=== PATIENT | male | born 1975 | race Caucasian/White ===

== ENCOUNTER 2019-09-15 01:57 | Emergency (ER) | payer SELFPAY ==
[~2019-09-15] VITALS: Ht 193 cm; Wt 104.5 kg
[~2019-09-15 01:57] MED LIST: CYCL10TA9 PO; IBUP-1780 PO; PRD20T PO; PRM25T PO; TRM50T PO
--- OUTSIDE RECORDS SUMMARY | 2019-09-15 02:03 | XMS REPORT ---
Author Author Tera RENEE Organization [facility] Address [address] [place] [address] Care Team Providers Care Cycle Manager Name Role Phone MARIO RENEE Unavailable PROBLEMS Type Condition ICD9-CM Code PVM95-SM Code Onset Dates Condition S tatus SNOMED Code Problem Other chronic pain G89.29 Active 8 [id number] Problem Low back pain M54.5 Active 965308 009 Problem Sciatica of right side M54.31 Active [id number] ALLERGIES No Known Allergies ENCOUNTERS Encounter Location Date Diagnosis [facility] [id number] [place] [id number] Mar, Tonsillitis J03.90 [facility] [id number] [place] [id number] Oct, Other chronic pain G89.29 ; Low back pain M54.5 and Sciatica of right side M54.31 [facility] [address] [facility] [id number] [place] [id number] Jun, Hip pain, right M25.551 [facility] [id number] [place] [id number] Feb, IMMUNIZATIONS No Known Immunizations SOCIAL HISTORY Never Assessed REASON FOR VISIT Sore throat, headache, fatigue--Lou Dominguez MA PLAN OF CARE Activity Details Follow Up prn Reason: VITAL SIGNS Height 77 in 2017-03-30 Weight 222.6 lbs 2017-03-30 Temperature 99.1 degrees Fahrenheit 2017-03-30 Heart Rate 92 bpm 2017-03-30 Respiratory Rate 20 2017-03-30 BMI 26.39 kg/m2 2017-03-30 Blood pressure systolic 130 mmHg 2017-03-30 Blood pressure diastolic 72 mmHg 2017-03-30 MEDICATIONS Medication Instructions Dosage Frequency Start Date End Date Duration S tatus Amoxicillin 500 mg Orally every 12 hrs 2 capsules 12h Mar, Mar, 07 days Active RESULTS No Results PROCEDURES No Known procedures INSTRUCTIONS MEDICATIONS ADMINISTERED No Known Medications MEDICAL (GENERAL) HISTORY Type Description Date Surgical History orthopedic surgery- left ankle
--- OUTSIDE RECORDS SUMMARY | 2019-09-15 02:03 | XMS REPORT | Continuity of Care Document ---
Author Organization Unknown Address Unknown Phone Unavailable Allergies Active Description Code Type Severity Reaction Onset Reported/Identified Relationship to Patient Clinical Status Yes No Known Drug Allergies [id number] Drug Allergy Unknown N/A 03/30/2012 Medications There is no data. Problems Date Dx Coded Attending Type Code Diagnosis Diagnosed By 03/30/2012 Ot 787.03 03/30/2012 Ot 787.91 03/30/2012 Ot 789.00 06/14/2015 TAMEKA BEDOYA Ot F17.210 06/14/2015 TAMEKA BEDOYA Ot M51.16 Procedures There is no data. Results There is no data. Encounters ACCT No. Visit Date/Time Discharge Status Pt. Type Provider Facility Loc./Unit Complaint [id number] 03/30/2017 14:40:00 03/30/2017 23:59: 59 CLS Outpatient LOLY AGUILERA [facility] [id number] 06/14/2015 20:56:00 016 22:02:00 DIS Emergency TAMEKA BEDOYA [facility] ER [id number] 03/30/2012 08:59:00 Document Registration
[2019-09-15] MEDS ORDERED: LACTATED RINGERS 1,000 ML IV ONE (02:07)
[2019-09-15] MEDS ORDERED: PANTOPRAZOLE 40 MG (PROTONIX) VIAL IV ONE (02:15)
[2019-09-15] MEDS ORDERED: ONDANSETRON 4 MG/2 ML (SDV) Z0FRAN IVP ONE (02:15)
--- NOTE | 2019-09-15 02:15 | ED Abdominal Pain ---
General Chief Complaint: Abdominal/GI Problems Stated Complaint: ABD PAIN Source of Information: Patient Exam Limitations: No Limitations History of Present Illness Date Seen by Provider: September 15, 2019 Time Seen by Provider: 01:56 Initial Comments Patient presents ER by private conveyance with chief complaint of waking up yesterday morning with epigastric abdominal pain nausea vomiting. Throughout the day he's had 4 bowel movements with the last one finally being soft. He did BBQ some chicken the day before. He has not been able to eat anything today. He took some ibuprofen as well as Zofran which he immediately vomited both up. He has not seen anybody for this yet. Patient says his car ride over was uneventful because he had vomited just prior to getting in the vehicle. No history of abdominal surgeries or workup. He did have a couple beers yesterday but does not routinely drink. No history of pancreatitis. He did not try any antacids. He has no significant medical history. He does not follow with a doctor. The only significant family history his mother had to have her gallbladder out. Allergies and Home Medications Allergies Coded Allergies: No Known Drug Allergies (Unverified , 03/30/12) Home Medications Cyclobenzaprine HCl 10 Mg Tablet, 10 MG PO Q8H PRN for SPASMS Prescribed by: TAMEKA CASAS on 06/14/152139 Ibuprofen 800 Mg Tablet, 800 MG PO Q8H PRN for PAIN Prescribed by: TAMEKA CASAS on 06/14/152139 Prednisone 20 Mg Tab, 40 MG PO DAILY Prescribed by: TAMEKA CASAS on 06/14/152139 Tramadol HCl 50 Mg Tablet, 50 MG PO Q4H PRN for PAIN Prescribed by: TAMEKA CASAS on 06/14/152139 Patient Home Medication List Home Medication List Reviewed: Yes Review of Systems Review of Systems Constitutional: No chills, No diaphoresis EENTM: No Blurred Vision, No Double Vision Respiratory: Denies Cough, Denies Shortness of Air Cardiovascular: Denies Chest Pain, Denies Lightheadedness Gastrointestinal: Denies Constipated; Diarrhea, Nausea, Poor Fluid Intake, Vomiting Genitourinary: Denies Burning, Denies Discharge Musculoskeletal: No back pain, No joint pain All Other Systems Reviewed Negative Unless Noted: Yes Past Ntpbcxo-Dhlqre-Qrfksp Hx Patient Social History Alcohol Use: Occasionally Uses Alcohol Beverage of Choice: Beer Recreational Drug Use: No Smoking Status: Never a Smoker Recent Foreign Travel: No Contact w/Someone Who Travel: No Seasonal Allergies Seasonal Allergies: No Past Medical History Orthopedic Chronic Back Pain Adverse Reaction/Blood Tranf: No Family Medical History No Pertinent Family Hx Physical Exam Vital Signs Vital Signs - First Documented 09/15/19 02:02 Temp 36.8 Pulse 79 Resp 20 B/P (MAP) 117/87 (97) Pulse Ox 97 O2 Delivery Room Air Capillary Refill : Height/Weight/BMI Height: 6'4" Weight: 225lbs. oz. 102.037835aw; 27.38 BMI Method:Stated General Appearance: WD/WN, mild distress HEENT: PERRL/EOMI, pharynx normal Neck: full range of motion, normal inspection Respiratory: lungs clear, normal breath sounds, no respiratory distress, no accessory muscle use Cardiovascular: normal peripheral pulses, regular rate, rhythm Peripheral Pulses: 2+ Radial Pulses (R), 2+ Radial Pulses (L) Gastrointestinal: normal bowel sounds, soft, tenderness (epigastric region), other (negative for McBurney's point tenderness, Rovsing sign, mesenteric signs. Negative for Braswell sign) Extremities: normal range of motion, non-tender, normal inspection Neurologic/Psychiatric: alert, normal mood/affect, oriented x 3 Skin: normal color, warm/dry Progress/Results/Core Measures Results/Orders Lab Results Laboratory Tests Test 09/15/19 02:10 09/15/19 02:18 Range/Units Urine Color YELLOW Urine Clarity CLEAR Urine pH 5.5 5-9 Urine Specific [place] >=1.030 1.016-1.022 Urine Protein TRACE H NEGATIVE Urine Glucose (UA) NEGATIVE NEGATIVE Urine Ketones 1+ H NEGATIVE Urine Nitrite NEGATIVE NEGATIVE Urine Bilirubin 1+ H NEGATIVE Urine Urobilinogen 0.2 < = 1.0 MG/DL Urine Leukocyte Esterase NEGATIVE NEGATIVE Urine RBC (Auto) TRACE-I NEGATIVE Urine RBC 2-5 H /HPF Urine WBC NONE /HPF Urine Squamous Epithelial Cells RARE /HPF Urine Renal Epithelial Cells 2-5 /HPF Urine Crystals PRESENT H /LPF Urine Amorphous Sediment LARGE VIRAL URATES H /LPF Urine Bacteria MODERATE H /HPF Urine Casts NONE /LPF Urine Mucus MODERATE H /LPF Urine Yeast MODERATE H /HPF Urine Culture Indicated YES Urine Opiates Screen NEGATIVE NEGATIVE Urine Oxycodone Screen NEGATIVE NEGATIVE Urine Methadone Screen NEGATIVE NEGATIVE Urine Propoxyphene Screen NEGATIVE NEGATIVE Urine Barbiturates Screen NEGATIVE NEGATIVE Ur Tricyclic Antidepressants Screen NEGATIVE NEGATIVE Urine Phencyclidine Screen NEGATIVE NEGATIVE Urine Amphetamines Screen NEGATIVE NEGATIVE Urine Methamphetamines Screen NEGATIVE NEGATIVE Urine Benzodiazepines Screen NEGATIVE NEGATIVE Urine Cocaine Screen NEGATIVE NEGATIVE Urine Cannabinoids Screen POSITIVE H NEGATIVE White Blood Count 15.1 H 4.3-11.0 10^3/uL Red Blood Count 5.29 4.35-5.85 10^6/uL Hemoglobin 15.5 13.3-17.7 G/DL Hematocrit 45 40-54 % Mean Corpuscular Volume 86 80-99 FL Mean Corpuscular Hemoglobin 29 25-34 PG Mean Corpuscular Hemoglobin Concent 34 32-36 G/DL Red Cell Distribution Width 13.3 10.0-14.5 % Platelet Count 309 130-400 10^3/uL Mean Platelet Volume 10.1 7.4-10.4 FL Neutrophils (%) (Auto) 82 H 42-75 % Lymphocytes (%) (Auto) 11 L 12-44 % Monocytes (%) (Auto) 6 0-12 % Eosinophils (%) (Auto) 1 0-10 % Basophils (%) (Auto) 0 0-10 % Neutrophils # (Auto) 12.3 H 1.8-7.8 X 10^3 Lymphocytes # (Auto) 1.6 1.0-4.0 X 10^3 Monocytes # (Auto) 0.9 0.0-1.0 X 10^3 Eosinophils # (Auto) 0.2 0.0-0.3 10^3/uL Basophils # (Auto) 0.0 0.0-0.1 10^3/uL Neutrophils % (Manual) 79 % Lymphocytes % (Manual) 13 % Monocytes % (Manual) 6 % Eosinophils % (Manual) 2 % Anisocytosis SLIGHT Sodium Level 138 135-145 MMOL/L Potassium Level 3.8 3.6-5.0 MMOL/L Chloride Level 107 98-107 MMOL/L Carbon Dioxide Level 18 L 21-32 MMOL/L Anion Gap 13 5-14 MMOL/L Blood Urea Nitrogen 13 7-18 MG/DL Creatinine 1.00 0.60-1.30 MG/DL Estimat Glomerular Filtration Rate > 60 BUN/Creatinine Ratio 13 Glucose Level 126 H 70-105 MG/DL Calcium Level 9.3 8.5-10.1 MG/DL Corrected Calcium 8.5-10.1 MG/DL Total Bilirubin 0.5 0.1-1.0 MG/DL Aspartate Amino Transf (AST/SGOT) 18 5-34 U/L Alanine Aminotransferase (ALT/SGPT) 16 0-55 U/L Alkaline Phosphatase 107 40-136 U/L C-Reactive Protein High Sensitivity 1.41 H 0.00-0.50 MG/DL Total Protein 7.8 6.4-8.2 GM/DL Albumin 4.6 H 3.2-4.5 GM/DL Lipase 17 8-78 U/L My Orders Orders - IVANA GORE Ua Culture If Indicated (09/15/19 01:59) Cbc With Automated Diff (09/15/19 01:59) Comprehensive Metabolic Panel (09/15/19 01:59) Lipase (09/15/19 01:59) Hs C Reactive Protein (09/15/19 01:59) Drug Screen Stat (Urine) (09/15/19 01:59) Pantoprazole Injection (Protonix Injecti (09/15/19 02:15) Ondansetron Injection (Zofran Injectio (09/15/19 02:15) Ed Iv/Invasive Line Start (09/15/19 02:07) Lactated Ringers (Lr 1000 Ml Iv Solution (09/15/19 02:07) Urine Culture (09/15/19 02:10) Manual Differential (09/15/19 02:18) Medications Given in ED Current Medications Medications Dose Ordered Sig/Srini Route Start Time Stop Time Status Last Admin Dose Admin Lactated Ringer's 1,000 ml @ 0 mls/hr Q0M ONCE IV 09/15/19 02:07 09/15/19 02:10 DC 09/15/19 02:24 0 MLS/HR Ondansetron HCl 4 mg ONCE ONCE IVP 09/15/19 02:15 09/15/19 02:16 DC 09/15/19 02:25 4 MG Pantoprazole 40 mg ONCE ONCE IV 09/15/19 02:15 09/15/19 02:16 DC 09/15/19 02:25 40 MG Vital Signs/I&O 09/15/19 02:02 Temp 36.8 Pulse 79 Resp 20 B/P (MAP) 117/87 (97) Pulse Ox 97 O2 Delivery Room Air Progress Progress Note #1: Time: 02:17 Progress Note Suspect gastroenteritis and colitis likely from viral versus enterotoxin. Peptic ulcer disease is also a possibility. Patient has aseptic vital signs. Plan to give him a liter of fluids and check some labs including lipase and urinalysis. If everything looks okay we can offer him an outpatient ultrasound of the gallbladder. Pantoprazole, Zofran and reexamined. Progress Note #2: Time: 03:04 Progress Note After Zofran, fluids and pantoprazole the patient's pain has significantly decreased from 6 out of 10 down to 3 out of 10. He is having no fever and still has aseptic vital signs. Unremarkable abdominal exam still. Suspect strongly he's having either PUD, gastroenteritis or preform enteric toxin. We have discussed appropriate conservative management and if his symptoms are not improving by Monday then he can obtain an ultrasound of his gallbladder. If his symptoms worsen or he develops fever he hasn't been instructed to return to the ER. Patient is okay with this plan. He says he feels much better and is ready to go home. Plan to give the patient dose of Toradol before he leaves. Departure Impression Primary Impression: Gastroenteritis and colitis, viral Disposition: HOME, SELF-CARE Condition: Stable Departure-Patient Inst. Decision time for Depature: 03:06 Referrals: ANTONI DORADO DO NO,LOCAL PHYSICIAN (PCP) Primary Care Physician Patient Instructions: Viral Gastroenteritis, Adult (DC) Add. Discharge Instructions: If you have nausea you may place one tablet of ondansetron under your tongue and allowed to absorb every 6 hours as needed. If you have pain you may try Tylenol 1000 mg every 8 hours. Take omeprazole 40 mg daily to help reduce the amount of acid in your stomach. If you're not seeing improvement by Monday then set up the appointment for an ultrasound and follow this up with Dr. Dorado by calling for an appointment in his clinic. If you're having intractable pain, vomiting or fever then you need to return to the ER promptly for further evaluation and management. Allow your diarrhea to go for the first 2 days. If after that you're still having loose, watery stools then you can take 2 tablets of Imodium followed by one more tablet every 4 hours afterwards if you're still having loose, watery stools. All discharge instructions reviewed with patient and/or family. Voiced understanding. Scripts Omeprazole (Omeprazole) 40 Mg Capsule.dr 40 MG PO DAILY for 14 Days, #14 CAP 0 Refills Prov: IVANA GORE 09/15/19 Ondansetron (Ondansetron Odt) 4 Mg Tab.rapdis 4 MG PO Q6H PRN for NAUSEA/VOMITING, #10 TAB 0 Refills Prov: IVANA GORE 09/15/19 Work/School Note: Work Release Form Date Seen in the Emergency Department: September 15, 2019 Return to Work: September 16, 2019 Restrictions: No Restrictions Copy Copies To 1: ANTONI DORADO DO IVANA GORE September 15, 2019 02:15
[2019-09-15 02:17] LABS: CLARITY,URINE CLEAR; COLOR,URINE YELLOW; GLUCOSE, URINE (UA) NEGATIVE (NEGATIVE); KETONES,URINE 1+ (NEGATIVE); LEUKOCYTE ESTERASE ,URINE NEGATIVE (NEGATIVE); NITRITE,URINE NEGATIVE (NEGATIVE); PH,URINE 5.5 (5-9); PROTEIN,URINE TRACE (NEGATIVE)
[2019-09-15 02:27] LABS: BACTERIA,URINE MODERATE /HPF; SQUAMOUS EPITHELIAL CELL,UR RARE /HPF
[2019-09-15 02:28] LABS: AMORPHOUS SEDIMENT,UR LARGE AMOR URATES /LPF; YEAST,URINE MODERATE /HPF
[2019-09-15 02:29] LABS: BILIRUBIN,URINE 1+ (NEGATIVE)
[2019-09-15 02:30] LABS: AMPHETAMINE SCREEN, URINE NEGATIVE (NEGATIVE); BARBITURATE SCREEN URINE NEGATIVE (NEGATIVE); BENZODIAZEPINES SCREEN URINE NEGATIVE (NEGATIVE); CANNABINOID SCREEN, URINE POSITIVE (NEGATIVE); COCAINE SCREEN URINE NEGATIVE (NEGATIVE); METHADONE STAT NEGATIVE (NEGATIVE); METHAMPHETAMINE SCREEN URINE S NEGATIVE (NEGATIVE); OPIATE SCREEN URINE NEGATIVE (NEGATIVE); OXYCODONE STAT NEGATIVE (NEGATIVE); PROPOXYPHENE STAT NEGATIVE (NEGATIVE); TRICYCLIC ANTIDEPRESSANTS SCRE NEGATIVE (NEGATIVE)
[2019-09-15 02:34] LABS: BASOPHILS % (AUTO) 0 % (0-10); EOSINOPHILS # (AUTO) 0.2 10^3/uL (0.0-0.3); EOSINOPHILS % (AUTO) 1 % (0-10); HEMATOCRIT 45 % (40-54); HEMOGLOBIN 15.5 G/DL (13.3-17.7); LYMPHOCYTES # (AUTO) 1.6 X 10^3 (1.0-4.0); LYMPHOCYTES % (AUTO) 11 % (12-44); MEAN CORPUSCULAR HEMOGLOBIN 29 PG (25-34); MEAN CORPUSCULAR HGB CONC 34 G/DL (32-36); MEAN CORPUSCULAR VOLUME 86 FL (80-99); MEAN PLATELET VOLUME 10.1 FL (7.4-10.4); MONOCYTES # (AUTO) 0.9 X 10^3 (0.0-1.0); MONOCYTES % (AUTO) 6 % (0-12); NEUTROPHILS # (AUTO) 12.3 X 10^3 (1.8-7.8); NEUTROPHILS % (AUTO) 82 % (42-75); PLATELET COUNT 309 10^3/uL (130-400); RED CELL DISTRIBUTION WIDTH 13.3 % (10.0-14.5); WHITE BLOOD COUNT 15.1 10^3/uL (4.3-11.0)
[2019-09-15 02:40] LABS: ALBUMIN 4.6 GM/DL (3.2-4.5); CHLORIDE 107 MMOL/L (98-107); POTASSIUM 3.8 MMOL/L (3.6-5.0); SODIUM 138 MMOL/L (135-145)
[2019-09-15 02:41] LABS: CALCIUM 9.3 MG/DL (8.5-10.1)
[2019-09-15 02:42] LABS: GLUCOSE 126 MG/DL (70-105)
[2019-09-15 02:43] LABS: TOTAL PROTEIN 7.8 GM/DL (6.4-8.2)
[2019-09-15 02:44] LABS: BILIRUBIN,TOTAL 0.5 MG/DL (0.1-1.0); CARBON DIOXIDE 18 MMOL/L (21-32)
[2019-09-15 02:46] LABS: ALKALINE PHOSPHATASE 107 U/L (40-136); GFR ESTIMATED > 60
[2019-09-15 02:47] LABS: BUN/CREATININE RATIO 13
[2019-09-15 02:49] LABS: ALANINE AMINOTRANSFERASE 16 U/L (0-55); LIPASE 17 U/L (8-78)
[2019-09-15 03:00] LABS: ANISOCYTOSIS SLIGHT; EOSINOPHILS % (MANUAL) 2 %; LYMPHOCYTES % (MANUAL) 13 %; MONOCYTES % (MANUAL) 6 %; NEUTROPHILS % (MANUAL) 79 %
[2019-09-15] MEDS ORDERED: OMEP40CA27 PO (03:10)
[2019-09-15] MEDS ORDERED: ONDA4TAB11 PO (03:10)
[2019-09-15] MEDS ORDERED: KETOROLAC 30 MG/ML VIAL IVP ONE (03:15)
[2019-09-15 03:18] VITALS: BP 121/88
== END 2019-09-15 03:18 | disposition home or self-care (01) ==
LOC: EDUNIT# 01:57 → ER 01:59
DX: A08.4 Viral intestinal infection, unspecified (principal); Z79.52 Long term (current) use of systemic steroids
CPT/HCPCS: 36415; 80053; 80306; 81000; 83690; 85007; 85027; 86141; 87088

== ENCOUNTER 2020-12-31 22:45 | Emergency (ER) | payer SELFPAY ==
[~2020-12-31] VITALS: Ht 193 cm; Wt 104.5 kg
[~2020-12-31 22:45] MED LIST changes: +OMEP40CA6 PO; +ONDA4TAB11 PO
[2020-12-31] MEDS ORDERED: HYDROmorphone 2 MG/ML VIAL (DILAUDID) ONE (23:00)
[2020-12-31] MEDS ORDERED: ceFAZolin INJECTION 1,000 MG ONE (23:02)
[2020-12-31] MEDS ORDERED: TETANUS,DIPTH,PERTUSS P/F (BOOSTRIX) 0.5 ML VIAL IM ONE ×2 (23:03→23:30)
[2020-12-31] MEDS ORDERED: WATER (STERILE) FOR INJECTION 10 ML ONE (23:03)
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
[2020-12-31 23:19] LABS: HEMATOCRIT 41 % (40-54); HEMOGLOBIN 13.7 g/dL (13.3-17.7); MEAN CORPUSCULAR HEMOGLOBIN 30 pg (25-34); MEAN CORPUSCULAR HGB CONC 33 g/dL (32-36); MEAN CORPUSCULAR VOLUME 90 fL (80-99); MEAN PLATELET VOLUME 9.4 fL (9.0-12.2); PLATELET COUNT 369 10^3/uL (130-400); WHITE BLOOD COUNT 14.8 10^3/uL (4.3-11.0)
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
[2020-12-31 23:25] LABS: ALBUMIN 4.3 GM/DL (3.2-4.5); POTASSIUM 3.2 MMOL/L (3.6-5.0)
[2020-12-31 23:25] LABS: BILIRUBIN,URINE NEGATIVE (NEGATIVE); CLARITY,URINE CLEAR; COLOR,URINE YELLOW; GLUCOSE, URINE (UA) NEGATIVE (NEGATIVE); KETONES,URINE NEGATIVE (NEGATIVE); LEUKOCYTE ESTERASE ,URINE NEGATIVE (NEGATIVE); NITRITE,URINE NEGATIVE (NEGATIVE); PROTEIN,URINE 2+ (NEGATIVE)
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
[2020-12-31 23:28] LABS: TOTAL PROTEIN 7.2 GM/DL (6.4-8.2)
[2020-12-31 23:30] VITALS: BP 135/88
[2020-12-31 23:30] LABS: BILIRUBIN,TOTAL 0.4 MG/DL (0.1-1.0)
[2020-12-31] MEDS ORDERED: ceFAZolin INJECTION 1,000 MG in WATER (STERILE) FOR INJECTION 10 ML IV ONE (23:30)
[2020-12-31] MEDS ORDERED: TRANEXAMIC ACID INJECTION 1,000 MG in NS (IVPB) 250 ML IV SCH (23:30)
[2020-12-31 23:32] LABS: CREATININE SERUM 1.22 MG/DL (0.60-1.30)
[2020-12-31 23:33] LABS: BACTERIA,URINE TRACE /HPF; RBC,URINE 25-50 /HPF; URINE OTHER FEW SPERM /HPF
[2020-12-31 23:33] LABS: BILIRUBIN,DIRECT 0.1 MG/DL (0.0-0.3); BILIRUBIN,INDIRECT 0.3 MG/DL
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
[2020-12-31 23:35] LABS: AMPHETAMINE SCREEN, URINE POSITIVE (NEGATIVE); BARBITURATE SCREEN URINE NEGATIVE (NEGATIVE); BENZODIAZEPINES SCREEN URINE NEGATIVE (NEGATIVE); CANNABINOID SCREEN, URINE POSITIVE (NEGATIVE); COCAINE SCREEN URINE NEGATIVE (NEGATIVE); METHADONE STAT NEGATIVE (NEGATIVE); METHAMPHETAMINE SCREEN URINE S POSITIVE (NEGATIVE); OPIATE SCREEN URINE POSITIVE (NEGATIVE); OXYCODONE STAT NEGATIVE (NEGATIVE); PROPOXYPHENE STAT NEGATIVE (NEGATIVE); TRICYCLIC ANTIDEPRESSANTS SCRE NEGATIVE (NEGATIVE)
== END 2021-01-01 00:11 | disposition short-term general hospital (02) ==
LOC: EDUNIT# 22:45 → ER 22:46
DX: S72.401B Unspecified fracture of lower end of right femur, initial encounter for open fracture type I or II (principal); S41.111A Laceration without foreign body of right upper arm, initial encounter; S81.811A Laceration without foreign body, right lower leg, initial encounter; S01.111A Laceration without foreign body of right eyelid and periocular area, initial encounter; S01.21XA Laceration without foreign body of nose, initial encounter; S40.211A Abrasion of right shoulder, initial encounter; R40.2410 Glasgow coma scale score 13-15, unspecified time; Z23 Encounter for immunization; Z79.52 Long term (current) use of systemic steroids; V29.9XXA Motorcycle rider (driver) (passenger) injured in unspecified traffic accident, initial encounter
CPT/HCPCS: 51702; 71045; 72170; 80048; 80076; 80306; 81000; 85027; 86850; 86900; 86901; 90471; 93041; 96374; 96375; 99285; G0480; 36415; 80320; 90715

== ENCOUNTER 2021-01-22 21:23 | Day surgery (SDC) | payer BC ==
[~2021-01-22] VITALS: Ht 195.6 cm; Wt 93.3 kg
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
[2021-01-22] MEDS ORDERED: LACTATED RINGERS 1,000 ML IV SCH (21:45)
[2021-01-22] MEDS ORDERED: KETOROLAC 30 MG/ML VIAL IVP ONE (21:45)
[2021-01-22] MEDS ORDERED: ONDANSETRON 4 MG/2 ML (SDV) Z0FRAN IVP ONE (21:45)
[2021-01-22 21:48] LABS: BASOPHILS # (AUTO) 0.1 10^3/uL (0.0-0.1); BASOPHILS % (AUTO) 1 % (0-10); EOSINOPHILS # (AUTO) 0.1 10^3/uL (0.0-0.3); EOSINOPHILS % (AUTO) 1 % (0-10); HEMATOCRIT 33 % (40-54); HEMOGLOBIN 10.2 g/dL (13.3-17.7); LYMPHOCYTES % (AUTO) 7 % (12-44); MEAN CORPUSCULAR HEMOGLOBIN 27 pg (25-34); MEAN CORPUSCULAR HGB CONC 31 g/dL (32-36); MEAN CORPUSCULAR VOLUME 88 fL (80-99); MEAN PLATELET VOLUME 8.6 fL (9.0-12.2); MONOCYTES # (AUTO) 0.6 10^3/uL (0.0-1.0); MONOCYTES % (AUTO) 4 % (0-12); NEUTROPHILS # (AUTO) 11.7 10^3/uL (1.8-7.8); NEUTROPHILS % (AUTO) 87 % (42-75); PLATELET COUNT 770 10^3/uL (130-400); WHITE BLOOD COUNT 13.5 10^3/uL (4.3-11.0)
[2021-01-22 21:49] LABS: ALBUMIN 3.9 GM/DL (3.2-4.5); POTASSIUM 3.8 MMOL/L (3.6-5.0)
[2021-01-22 21:50] LABS: CALCIUM 10.5 MG/DL (8.5-10.1)
[2021-01-22 21:52] LABS: TOTAL PROTEIN 7.7 GM/DL (6.4-8.2)
[2021-01-22 21:53] LABS: BILIRUBIN,TOTAL 0.4 MG/DL (0.1-1.0)
[2021-01-22 21:55] LABS: CREATININE SERUM 0.81 MG/DL (0.60-1.30)
[2021-01-22 22:13] LABS: ATYPICAL LYMPHOCYTES 1 %; EOSINOPHILS % (MANUAL) 1 %; HYPOCHROMASIA SLIGHT; LYMPHOCYTES % (MANUAL) 8 %; MONOCYTES % (MANUAL) 3 %; NEUTROPHILS % (MANUAL) 87 %
[2021-01-22] MEDS ORDERED: LIDOCAINE 2% VISCOUS 15 ML UDC PO ONE (22:15)
[2021-01-22] MEDS ORDERED: ANTACID SUSP 30 ML UDC (MYLANTA) PO ONE (22:15)
--- NOTE | 2021-01-22 22:48 | Diagnostic Imaging Report ---
PROCEDURE: CT abdomen and pelvis without contrast. TECHNIQUE: Noncontrasted abdominopelvic CT performed with multiplanar reconstructions. Auto Exposure Controls were utilized during the CT exam to meet ALARA standards for radiation dose reduction. INDICATION: Nausea and vomiting. FINDINGS: The appendix arises off the posterolateral wall of the caudal pole of the cecum. There is appendicolith within the proximal appendiceal lumen measuring 1.4 x 0.7 cm. The appendix beyond that level is dilated with periappendiceal stranding and edema consistent with acute appendicitis. An additional stone within the tip of the appendix is present. Appendix outer wall to outer wall diameter measures maximal 1.7 cm and distally the appendix is directed cephalad along the colic gutter. There is no abscess or loculated fluid collection. There is no pelvic ascites. There is no extraluminal air or findings of a transmural perforation. There is no abscess. There is no resultant bowel obstruction. Urinary tracts are unobstructed, nonfocal and nonacute. No hepatobiliary abnormality. Spleen, adrenals and pancreas are negative. Unopacified urinary bladder is normal. There is no acute bony pathology. The lung bases are clear. IMPRESSION: Findings of acute appendicitis with intraluminal appendicoliths, periappendiceal stranding and edema but no abscess, obstruction or free air. Dictated by: Dictated on workstation # [id number]
[2021-01-22] MEDS ORDERED: PROMETHAZINE INJ 25 MG/ML (PHENERGAN) AMP IVP ONE (23:00)
[2021-01-22 23:30] VITALS: BP_SYST 132; BP_SYST 162; BP_DIAS 82; BP_DIAS 89
[2021-01-22] MEDS ORDERED: ONDANSETRON 4 MG/2 ML (SDV) Z0FRAN IV PRN (23:45)
[2021-01-22] MEDS ORDERED: PROMETHAZINE INJ 25 MG/ML (PHENERGAN) AMP IVP PRN (23:45)
[2021-01-23] VITALS (12 sets, daily range): BP systolic 109–163; BP diastolic 65–88
[2021-01-23] MEDS: LACTATED RINGERS 1,000 ML IV SCH ×4 (00:08→23:44)
[2021-01-23] MEDS: cefTRIAXone 1,000 MG/SWFI 10 ML IV PUSH IV SCH ×4 (00:16→20:18)
[2021-01-23] MEDS: metroNIDAZOLE 500 MG/100 ML IVPB (PRE-MIX) IV SCH ×3 (00:16→20:18)
[2021-01-23] MEDS: fentaNYL INJ 100 MCG/2 ML AMP IV PRN ×6 (00:18→23:17)
[2021-01-23] MEDS ORDERED: GABA-486 PO (02:58)
[2021-01-23] MEDS ORDERED: HYDR-3817 PO (02:59)
[2021-01-23] MEDS ORDERED: CLIN300C12 PO (03:02)
[2021-01-23 06:38] LABS: BASOPHILS # (AUTO) 0.1 10^3/uL (0.0-0.1); BASOPHILS % (AUTO) 1 % (0-10); EOSINOPHILS % (AUTO) 0 % (0-10); HEMATOCRIT 29 % (40-54); HEMOGLOBIN 9.1 g/dL (13.3-17.7); LYMPHOCYTES # (AUTO) 1.6 10^3/uL (1.0-4.0); LYMPHOCYTES % (AUTO) 11 % (12-44); MEAN CORPUSCULAR HEMOGLOBIN 27 pg (25-34); MEAN CORPUSCULAR HGB CONC 31 g/dL (32-36); MEAN CORPUSCULAR VOLUME 86 fL (80-99); MEAN PLATELET VOLUME 8.7 fL (9.0-12.2); MONOCYTES # (AUTO) 1.1 10^3/uL (0.0-1.0); MONOCYTES % (AUTO) 8 % (0-12); NEUTROPHILS # (AUTO) 11.3 10^3/uL (1.8-7.8); NEUTROPHILS % (AUTO) 80 % (42-75); PLATELET COUNT 653 10^3/uL (130-400); WHITE BLOOD COUNT 14.2 10^3/uL (4.3-11.0)
[2021-01-23 06:51] LABS: POTASSIUM 3.8 MMOL/L (3.6-5.0)
[2021-01-23 06:53] LABS: CALCIUM 9.7 MG/DL (8.5-10.1)
[2021-01-23 06:57] LABS: CREATININE SERUM 0.78 MG/DL (0.60-1.30)
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
[2021-01-23] MEDS ORDERED: LIDOCAINE/EPI 1%-1:100,000 (XYLOCAINE) 20ML ONE (10:20)
[2021-01-23] MEDS ORDERED: LIDOCAINE PF 2% 5 ML (XYLOCAINE) VIAL ONE (10:27)
[2021-01-23] MEDS ORDERED: fentaNYL INJ 100 MCG/2 ML AMP ONE (10:27)
[2021-01-23] MEDS ORDERED: ROCURONIUM 10 MG/ML 5 ML SYRINGE IV ONE ×2 (10:27→11:26)
[2021-01-23] MEDS ORDERED: proPOfol 200 MG/20 ML (DIPRIVAN) VIAL IV ONE (10:27)
[2021-01-23] MEDS ORDERED: NEOSTIGMINE 3 MG/3 ML VIAL ONE (10:27)
[2021-01-23] MEDS ORDERED: MIDAZOLAM 2 MG/2 ML (VERSED) VIAL ONE (10:27)
[2021-01-23] MEDS ORDERED: GLYCOPYRROLATE 0.2 MG/ML (ROBINUL) 2 ML VIAL ONE (10:27)
[2021-01-23] MEDS ORDERED: ONDANSETRON 4 MG/2 ML (SDV) Z0FRAN ONE (10:27)
[2021-01-23] MEDS: LACTATED RINGERS 1,000 ML IV PRN ×2 (10:45→10:46)
[2021-01-23] MEDS ORDERED: HYDROmorphone 2 MG/ML VIAL (DILAUDID) ONE (11:23)
[2021-01-23] MEDS ORDERED: SEVOFLURANE (ULTANE) 15 ML INHAL SOLN ONE (11:48)
--- NOTE | 2021-01-23 12:06 | Progress Note-Post Operative ---
Post-Operative Progess Note Surgeon (s)/Emergency Planning And Response Manager (s) Surgeon ANTONI DORADO DO Emergency Planning And Response Manager: FLORENTINO Lopes Pre-Operative Diagnosis acute appy Post-Operative Diagnosis same Procedure & Operative Findings Date of Procedure 01/23/21 Procedure Performed/Findings PROCEDURE: Laparoscopic appendectomy. COMPLICATIONS: None. INDICATIONS: The patient is a 45 year old male who has been having right lower quadrant abdominal pain. Patient's exam consistent with appendicitis. I discussed risk and benefits of laparoscopic appendectomy and all indicated procedures with the possibility being a normal appendix. The patient understands the risks and benefits and wishes to proceed. Consent was signed on the chart. DESCRIPTION OF PROCEDURE: The patient was taken to the operating suite, prepped and draped in a sterile fashion. Timeout was performed. Local anesthetic was infiltrated just above the umbilicus and 11-blade scalpel was used to make a skin incision. Cautery was used to dissect down to the fascia and scored. Kochers were used to grasp and elevate it and the abdomen was then entered. A 0 Vicryl was placed in a [id number] fashion for closure at the end of the case. The balloon trocar was inserted into the abdomen and pneumoperitoneum was achieved. Under direct visualization of the laparoscope, a 5 mm trocar was placed in the suprapubic region and a 5 mm trocar was placed in the left lower quadrant. Appendix was located; retrocecal, inflamed with some minimal murky fluid. Did not see any signs of perforation. The base of the appendix was dissected around. Once at the base an Endo-JUAN JOSE 2.5 stapler was then fired across the base of the appendix. The mesoappendix was then divided, using the ligasure and in this fashion coming across the appendiceal artery. It was then placed in an Endobag and removed through the 12 mm trocar site. The abdomen was then irrigated and suctioned. No bleeding noted in the mesentery or around intestine; staple line looked good. Pt was noted to have a small indirect right inguinal hernia; picture taken. The abdomen was then desufflated and the trocars were removed. The 0 Vicryl placed at the beginning of the case was then tied closing the 12 mm fascial defect. The skin was then closed using 4-0 Monocryl in a subcuticular fashion. The abdomen was then washed and dried and Skin Affix was placed over the incisions. The patient tolerated the procedure well without any complications and was taken to the recovery room in stable condition. Anesthesia Type GET Estimated Blood Loss Estimated blood loss (mL): scant Specimens/Packing Specimens Removed ANTONI Bishop DO Jan 23, 2021 12:06
--- NOTE | 2021-01-23 12:08 | Discharge Inst-Surgical ---
Discharge Inst-Surgical Depart Medication/Instructions New, Converted or Re-Newed RX: Other (use home meds) Patient Instructions Follow up Appt: Make appointment for 1 week. [phone] Instructions: No lifting greater than 20 pounds. No strenuous activity. May shower in 24 hours, no tub bath or soaking. Use incentive spirometer at home as directed. No Smoking Skin/Wound Care: May remove bandages in am. You need to leave the Dermabond on incision it will fall off on it's own. Symptoms to Report: Appetite Changes, Extremity Discoloration, Numbness/Tingling, Swelling Increased, Bleeding Excessive, Eyesight Changes, Pain Increased, Urine Color Change, Constipation(Persistent), Fever over 101 degree F, Pain/Pressure in chest, Urinating Difficulty, Cough Up/Vomit Blood, Heart Beat Irreg/Pounding, Pain/Pressure in jaw, Cramps in feet or legs, Lightheadedness, Pain/Pressure in shoulder, Diarrhea(Persistent), Memory Changes Suddenly, Questions/Concerns, Weight gain consecutive days, Dizziness/Fainting, Nausea/Vomiting, Shortness of Breath, Weight gain over 2 pounds If questions or concerns contact your physician Or seek help at emergency department. Activity Activity as Tolerated: Yes Activity Instructions: Avoid Stress to Incision Driving Instructions: No Driving/Refer to Dr. Gomez Discharge Diet: No Restrictions Diet After 24 Hours: Clear Liquid if Nauseous If Any Problems/Questions/Issu: Contact Your Physician, Go to Emergency Room Skin/Wound Care Infection Signs and Symptoms: Increased Redness, Foul Odor of Wound, Increased Drainage, Skin Itchy or Has a Rash, Increased Swelling, Temperature Above 101 F Wound Care Comment: Heating pad to shoulder or neck tonight for pain tonight Bathing Instructions: Shower Stitches/Cammy/Dermabond Dis: Dermabond Ice Pack: Ice On and Off Site (as needed at incisions for pain) ANTONI DORADO DO Jan 23, 2021 12:08
[2021-01-23] MEDS: GABAPENTIN 100 MG (NEURONTIN) CAP PO SCH (21:16)
[2021-01-24] MEDS: fentaNYL INJ 100 MCG/2 ML AMP IV PRN ×3 (03:08→08:32)
[2021-01-24 03:57] VITALS: BP 125/75
[2021-01-24] MEDS: GABAPENTIN 100 MG (NEURONTIN) CAP PO SCH (05:53)
[2021-01-24] MEDS: LACTATED RINGERS 1,000 ML IV SCH (05:53)
[2021-01-24 07:34] VITALS: BP 128/84
--- NOTE | 2021-01-24 13:41 | Anesthesia-General Post-Op ---
General Post Op Complications Complications None Follow Up Care/Instructions Patient Instructions None needed. Anesthesia/Patient Condition Patient Condition Patient discharged prior to post-op visit. Chart reviewed. No apparent adverse anesthesia problems. NATASHA CRONIN CRNA Jan 24, 2021 13:41
== END 2021-01-24 08:40 | disposition home or self-care (01) ==
LOC: EDUNIT# 21:23 → ER 21:25 → 4TH 23:10 → UNDOADMOB 23:10 → SDC 23:10 → 4TH 23:10 → SDC 01-24 08:40 → UNDODISOB 01-24 08:40
PROVIDERS: ATTEND Surgery
DX: K35.80 Unspecified acute appendicitis (principal); G47.33 Obstructive sleep apnea (adult) (pediatric); G89.29 Other chronic pain; M54.9 Dorsalgia, unspecified; Z79.891 Long term (current) use of opiate analgesic; Z79.899 Other long term (current) drug therapy
CPT/HCPCS: 36415; 74176; 80048; 80053; 83690; 85007; 85025; 85027; 87081; 88304

== ENCOUNTER 2021-04-21 14:16 | Outpatient (RCR) | payer BC ==
[~2021-04-21 14:16] MED LIST changes: +CLIN-144 PO; +CYCL10TA25 PO; -CYCL10TA9 PO; +GABA-486 PO; +HYDR-3817 PO
== END 2021-04-23 | disposition home or self-care (01) ==
PROVIDERS: ATTEND Orthopaedic Surgery Orthopaedic Trauma
DX: Z96.661 Presence of right artificial ankle joint (principal)

== ENCOUNTER 2021-04-21 14:16 | Outpatient (RCR) | payer BC | END 2021-04-23 | disposition home or self-care (01) | PROVIDERS: ATTEND Nurse Practitioner Family | DX: S14.3XXA Injury of brachial plexus, initial encounter (principal); V29.9XXA Motorcycle rider (driver) (passenger) injured in unspecified traffic accident, initial encounter ==

== ENCOUNTER → 2021-05-24 | Outpatient (RCR) | payer BC | END | disposition home or self-care (01) | PROVIDERS: ATTEND Nurse Practitioner Family | DX: S14.3XXA Injury of brachial plexus, initial encounter (principal); V29.9XXA Motorcycle rider (driver) (passenger) injured in unspecified traffic accident, initial encounter ==

== ENCOUNTER → 2021-05-24 | Outpatient (RCR) | payer BC | END | disposition home or self-care (01) | PROVIDERS: ATTEND Orthopaedic Surgery Orthopaedic Trauma | DX: Z96.661 Presence of right artificial ankle joint (principal) ==

== ENCOUNTER 2021-10-27 11:47 | Emergency (ER) | payer BC ==
[~2021-10-27] VITALS: Ht 195.5 cm; Wt 113.0 kg
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
--- NOTE | 2021-10-27 15:37 | Diagnostic Imaging Report ---
PROCEDURE: CT head without contrast. TECHNIQUE: Multiple contiguous axial images were obtained through the brain without the use of intravenous contrast. Auto Exposure Controls were utilized during the CT exam to meet ALARA standards for radiation dose reduction. INDICATION: Headache and visual changes. COMPARISON: No prior studies are available for comparison. FINDINGS: Ventricles and sulci are within normal limits. No sulcal effacement or midline shift is identified. No acute intra-axial or extra-axial hemorrhage is detected. Cisterns are patent. Visualized perinasal sinuses are clear, apart from opacification of several ethmoid air cells. IMPRESSION: No acute intracranial process is detected. Dictated by: Dictated on workstation # [id number]
[2021-10-27] MEDS ORDERED: TETRACAINE 0.5% OPHTH SOLN 4 ML BTL (SINGLE DOSE ONLY) OU ONE (15:45)
[2021-10-27 16:35] VITALS: BP 124/86
== END 2021-10-27 16:36 | disposition home or self-care (01) ==
LOC: EDUNIT# 11:47 → ER 11:49
DX: U07.1 COVID-19 (principal); H53.8 Other visual disturbances; F17.210 Nicotine dependence, cigarettes, uncomplicated; Z73.0 Burn-out; Z28.310 Unvaccinated for COVID-19
CPT/HCPCS: 70450

== ENCOUNTER → 2021-11-05 | Outpatient (CLI) | payer BC ==
--- NOTE | 2021-11-05 09:54 | Diagnostic Imaging Report ---
PROCEDURE: MR imaging of the brain without contrast. TECHNIQUE: Multiplanar, multisequence MR imaging of the brain was performed without contrast. INDICATION: Headache. Vision changes. COMPARISON: CT head without contrast 10/27/2021. FINDINGS: There are a couple of punctate T2 hyperintensities in the subcortical frontal lobes. No other abnormal intracranial signal. No restricted water diffusion. No hemosiderin deposition or evidence of intracranial hemorrhage. Normal morphology including the major midline structures, sella, posterior fossa and cerebellar pontine angle. Normal intracranial flow voids. No hydrocephalus or extra-axial fluid collections. The orbits are negative. Mild mucosal thickening in ethmoid and maxillary sinuses. Mastoids are clear. Normal bone marrow signal. IMPRESSION: 1. No acute intracranial MRI findings. No evidence of acute infarction or hemorrhage. 2. There are a couple punctate nonspecific T2 hyperintensities in the subcortical frontal lobes. These most commonly represent chronic small vessel ischemic change but could also be seen in patients who suffer from migraines. Dictated by: Dictated on workstation # [id number]
== END ==
LOC: RAD 08:45
PROVIDERS: ATTEND Physician Assistant
DX: I67.82 Cerebral ischemia (principal)
CPT/HCPCS: 70551

== ENCOUNTER 2021-12-01 09:34 | Emergency (ER) | payer BC ==
[~2021-12-01] VITALS: Ht 195 cm; Wt 97.0 kg
[2021-12-01] MEDS ORDERED: fentaNYL INJ 100 MCG/2 ML AMP ONE (09:41)
[2021-12-01] MEDS ORDERED: NS IV 1000 ML 1,000 ML IV SCH ×2 (10:00→10:30)
[2021-12-01] MEDS ORDERED: ceFAZolin 2 GM IV Premixed 50 ML IV ONE (10:00)
[2021-12-01] MEDS ORDERED: fentaNYL INJ 100 MCG/2 ML AMP IVP ONE (10:00)
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
[2021-12-01 10:04] LABS: HEMATOCRIT 41 % (40-54); HEMOGLOBIN 13.5 g/dL (13.3-17.7); MEAN CORPUSCULAR HEMOGLOBIN 29 pg (25-34); MEAN CORPUSCULAR HGB CONC 33 g/dL (32-36); MEAN CORPUSCULAR VOLUME 86 fL (80-99); MEAN PLATELET VOLUME 9.7 fL (9.0-12.2); PLATELET COUNT 324 10^3/uL (130-400); WHITE BLOOD COUNT 17.6 10^3/uL (4.3-11.0)
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
[2021-12-01] MEDS ORDERED: morphine INJ 10 MG/ML 1ML (SYR OR VIAL) IVP STA ×2 (10:20→12:07)
[2021-12-01 10:23] LABS: ALBUMIN 3.7 GM/DL (3.2-4.5); CHLORIDE 110 MMOL/L (98-107); POTASSIUM 3.8 MMOL/L (3.6-5.0); SODIUM 139 MMOL/L (135-145)
[2021-12-01 10:24] LABS: CALCIUM 8.8 MG/DL (8.5-10.1)
[2021-12-01] MEDS ORDERED: LIDOCAINE UROJET 2% GEL 10 ML PKG ONE (10:25)
[2021-12-01 10:26] LABS: GLUCOSE 151 MG/DL (70-105); TOTAL PROTEIN 6.5 GM/DL (6.4-8.2)
[2021-12-01 10:27] LABS: BILIRUBIN,TOTAL 0.3 MG/DL (0.1-1.0); CARBON DIOXIDE 19 MMOL/L (21-32)
[2021-12-01 10:29] LABS: ALKALINE PHOSPHATASE 144 U/L (40-136); CREATININE SERUM 0.97 MG/DL (0.60-1.30); GFR ESTIMATED 99
[2021-12-01 10:30] LABS: BUN/CREATININE RATIO 14
[2021-12-01] MEDS ORDERED: ONDANSETRON 4 MG/2 ML (SDV) Z0FRAN IVP ONE (10:30)
[2021-12-01 10:31] LABS: BILIRUBIN,DIRECT 0.1 MG/DL (0.0-0.3); BILIRUBIN,INDIRECT 0.2 MG/DL
[2021-12-01 10:32] LABS: ALANINE AMINOTRANSFERASE 70 U/L (0-55)
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
[2021-12-01] MEDS ORDERED: NS 100 ML (IVPB) BAG IV ONE (10:45)
[2021-12-01] MEDS ORDERED: IOHEXOL 350 MG/ML 100 ML (OMNIPAQUE 350) VIAL IV ONE (10:45)
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
[2021-12-01] MEDS ORDERED: LIDOCAINE UROJET 2% GEL 10 ML PKG TOP ONE (11:00)
[2021-12-01 11:10] LABS: BILIRUBIN,URINE NEGATIVE (NEGATIVE); CLARITY,URINE SL CLOUDY; COLOR,URINE YELLOW; GLUCOSE, URINE (UA) NEGATIVE (NEGATIVE); KETONES,URINE NEGATIVE (NEGATIVE); LEUKOCYTE ESTERASE ,URINE NEGATIVE (NEGATIVE); NITRITE,URINE NEGATIVE (NEGATIVE); PROTEIN,URINE 1+ (NEGATIVE)
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
[2021-12-01 11:20] LABS: BACTERIA,URINE NEGATIVE /HPF; RBC,URINE 25-50 /HPF; URINE OTHER FEW SPERM /HPF
[2021-12-01] MEDS ORDERED: LIDOCAINE 1% INJ 20 ML VIAL INJ ONE (11:45)
[2021-12-01] MEDS ORDERED: morphine INJ 10 MG/ML 1ML (SYR OR VIAL) ONE (12:01)
[2021-12-01 12:14] VITALS: BP 103/72
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
== END 2021-12-01 12:34 | disposition short-term general hospital (02) ==
LOC: EDUNIT# 09:34 → ER 09:36
DX: S73.004A Unspecified dislocation of right hip, initial encounter (principal); S72.91XA Unspecified fracture of right femur, initial encounter for closed fracture; S82.401A Unspecified fracture of shaft of right fibula, initial encounter for closed fracture; F15.90 Other stimulant use, unspecified, uncomplicated; Z28.310 Unvaccinated for COVID-19; V89.2XXA Person injured in unspecified motor-vehicle accident, traffic, initial encounter; Y92.410 Unspecified street and highway as the place of occurrence of the external cause
CPT/HCPCS: 12031; 27750; 29515; 51702; 70450; 71045; 71260; 72125; 72170; 73552; 73590; 73610; 74177; 80048; 80076; 81000; 82947; 85027; 86850; 86900; 86901; 93041; G0480; 36415; 80320; 99291

== ENCOUNTER 2021-12-28 11:39 | Emergency (ER) | payer BC ==
[~2021-12-28] VITALS: Ht 193 cm; Wt 97.5 kg
[2021-12-28 11:45] VITALS: BP 123/95
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
--- NOTE | 2021-12-28 13:17 | Diagnostic Imaging Report ---
EXAMINATION: US Lower Extremity Venous Duplex Left. TECHNIQUE: Multiple real-time grayscale images were obtained over the left lower extremity in various projections. Additional spectral analysis and color Doppler duplex images were also obtained. HISTORY: Left lower extremity pain. COMPARISON: None available. FINDINGS: Left: There is partially occlusive thrombus within the left common femoral vein. There is complete occlusion of the left superficial femoral, popliteal, peroneal, and proximal posterior tibial vein. IMPRESSION: 1. Completely occlusive thrombus within the left superficial femoral, popliteal, proximal peroneal, and posterior tibial veins. 2. Partially occlusive thrombus within the left common femoral vein. Preliminary report given to Dr. Whipple by the cement car dumper at the time of dictation. CRITICAL FINDING Dictated by: Dictated on workstation # [id number]
[2021-12-28] MEDS ORDERED: RIVAROXABAN 20 MG TABLET (XARELTO) PO ONE (13:30)
[2021-12-28] MEDS ORDERED: RIVA20TA PO ×2 (13:31→16:31)
== END 2021-12-28 14:37 | disposition home or self-care (01) ==
LOC: EDUNIT# 11:39 → ER 11:45
DX: I82.412 Acute embolism and thrombosis of left femoral vein (principal); Z87.828 Personal history of other (healed) physical injury and trauma
CPT/HCPCS: 99283

== ENCOUNTER 2022-01-31 05:33 | Emergency (ER) | payer BC ==
[~2022-01-31] VITALS: Ht 193 cm; Wt 100.0 kg
[~2022-01-31 05:33] MED LIST changes: +RIVA20TA PO
[2022-01-31 05:58] LABS: BASOPHILS # (AUTO) 0.1 10^3/uL (0.0-0.1); BASOPHILS % (AUTO) 1 % (0-10); EOSINOPHILS # (AUTO) 0.1 10^3/uL (0.0-0.3); EOSINOPHILS % (AUTO) 1 % (0-10); HEMATOCRIT 43 % (40-54); HEMOGLOBIN 13.3 g/dL (13.3-17.7); LYMPHOCYTES # (AUTO) 1.1 10^3/uL (1.0-4.0); LYMPHOCYTES % (AUTO) 11 % (12-44); MEAN CORPUSCULAR HEMOGLOBIN 26 pg (25-34); MEAN CORPUSCULAR HGB CONC 31 g/dL (32-36); MEAN CORPUSCULAR VOLUME 82 fL (80-99); MEAN PLATELET VOLUME 9.4 fL (9.0-12.2); MONOCYTES # (AUTO) 0.7 10^3/uL (0.0-1.0); MONOCYTES % (AUTO) 7 % (0-12); NEUTROPHILS # (AUTO) 8.4 10^3/uL (1.8-7.8); NEUTROPHILS % (AUTO) 80 % (42-75); PLATELET COUNT 262 10^3/uL (130-400); WHITE BLOOD COUNT 10.5 10^3/uL (4.3-11.0)
[2022-01-31] MEDS ORDERED: ANTACID SUSP 30 ML UDC (MYLANTA) PO ONE (06:00)
[2022-01-31] MEDS ORDERED: ONDANSETRON 4 MG/2 ML (SDV) Z0FRAN IVP ONE (06:00)
[2022-01-31] MEDS ORDERED: LIDOCAINE 2% VISCOUS 15 ML UDC PO ONE (06:00)
[2022-01-31 06:10] LABS: INR 1.2 (0.8-1.4); PROTHROMBIN TIME PATIENT 15.8 SEC (12.2-14.7)
[2022-01-31 06:11] LABS: ALBUMIN 4.2 GM/DL (3.2-4.5)
[2022-01-31 06:12] LABS: POTASSIUM 4.3 MMOL/L (3.6-5.0)
[2022-01-31 06:13] LABS: CALCIUM 9.3 MG/DL (8.5-10.1)
[2022-01-31 06:14] LABS: TOTAL PROTEIN 7.7 GM/DL (6.4-8.2)
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
[2022-01-31 06:16] LABS: BILIRUBIN,TOTAL 0.3 MG/DL (0.1-1.0)
[2022-01-31 06:18] LABS: CREATININE SERUM 0.92 MG/DL (0.60-1.30)
[2022-01-31 06:20] LABS: MAGNESIUM 1.9 MG/DL (1.6-2.4)
--- NOTE | 2022-01-31 06:31 | Diagnostic Imaging Report ---
EXAM: CHEST 1 VIEW, AP/PA ONLY INDICATION: Chest pain. COMPARISON: 12/01/2021. FINDINGS: Normal heart size and central pulmonary vascularity. Mild atelectasis or infiltrate in the left lung base. No pleural effusion or pneumothorax. No acute osseous findings. IMPRESSION: Mild atelectasis or infiltrate in the left lung base. Dictated by: Dictated on workstation # [id number]
[2022-01-31] MEDS ORDERED: CEFD300C3 PO (07:12)
[2022-01-31] MEDS ORDERED: AZIT250T12 PO (07:12)
[2022-01-31] MEDS ORDERED: fentaNYL INJ 100 MCG/2 ML AMP IVP ONE (07:15)
[2022-01-31] MEDS ORDERED: cefTRIAXone 1 GM PRE-MIX 50 ML IV ONE (07:15)
[2022-01-31] MEDS ORDERED: ACHD5005 PO (07:18)
[2022-01-31 08:00] VITALS: BP 129/97
== END 2022-01-31 08:00 | disposition home or self-care (01) ==
LOC: EDUNIT# 05:33 → ER 05:36
DX: J18.9 Pneumonia, unspecified organism (principal); F17.210 Nicotine dependence, cigarettes, uncomplicated; Z86.718 Personal history of other venous thrombosis and embolism; Z28.310 Unvaccinated for COVID-19; Z79.01 Long term (current) use of anticoagulants
CPT/HCPCS: 36415; 71045; 80053; 83735; 83874; 84484; 85025; 85610; 85730; 93005; 93041